=== PATIENT | female | born 1960 | race Caucasian/White ===

== ENCOUNTER 2019-11-06 18:37 | Emergency (ER) | payer OTHER ==
[2019-11-06] MEDS ORDERED: Acetaminophen 325 MG Tab PO ONE (19:14)
--- NOTE | 2019-11-06 19:37 | EDM.PDOC ---
ED HPI GENERAL MEDICAL PROBLEM - General Chief Complaint: Lower Extremity Injury/Pain Stated Complaint: LEFT LEG PAIN Time Seen by Provider: 11/06/19 18:56 Source of Information: Reports: Patient History Limitations: Reports: No Limitations - History of Present Illness INITIAL COMMENTS - FREE TEXT/NARRATIVE: 59-year-old female status post fall at home. A door was caught in the wind knocked her off of her 2-1/2 foot porch onto her left ankle. This took place yesterday. Today she has increasing pain and swelling. She went to see if she has a fracture or not. She has been ambulatory on the limb. No head trauma no back, chest abdomen pelvis trauma she only wants to be worked for the left lower extremity. Pain is 3/10 and worse with walking. Pain is sharp. Pain is located from the mid ovalles downward to the foot and ankle. No fever, chills, nausea, diarrhea, chest pain, shortness of breath, weakness numbness or confusion. left knee Pain Score (Numeric/FACES): 10 right knee Pain Score (Numeric/FACES): 10 left ankle/foot Pain Score (Numeric/FACES): 10 - Related Data Allergies Allergy/AdvReac Type Severity Reaction Status Date / Time codeine Allergy Agitation Verified 11/06/19 19:07 Home Meds: Home Meds Anti-Depressant 11/06/19 [History] Blood Pressure Medication 11/06/19 [History] Hydrocodone/Acetaminophen [Hydrocodon-Acetaminophen 5-325] 1 each PO Q6HR PRN # 6 tablet 11/06/19 [Rx] Past Medical History Cardiovascular History: Reports: Hypertension Musculoskeletal History: Reports: Fracture Psychiatric History: Reports: Depression - Infectious Disease History Infectious Disease History: Reports: Chicken Pox - Past Surgical History Female Surgical History: Reports: Hysterectomy, Tubal Ligation Musculoskeletal Surgical History: Reports: Knee Replacement Social & Family History - Family History Family Medical History: Noncontributory - Tobacco Use Smoking Status *Q: Never Smoker - Recreational Drug Use Recreational Drug Use: No Review of Systems - Review of Systems Review Of Systems: Comprehensive ROS is negative, except as noted in HPI. ED EXAM, GENERAL - Physical Exam Exam: See Below Free Text/Narrative:: General: No acute distress. Comfortable. Extremities: Painless range of motion right knee painless range of motion left knee. Negative pain on the hips with loading and abduction and outward rotation. No pain to palpation right lower extremity. Left lower extremity is tender with mid calf compression. There is tenderness about the ankle as well as the midfoot. Excellent pulses. No bruising or ecchymosis. Peripheral examination revealed no pedal edema. Peripheral pulses were 2+. Course - Vital Signs Text/Narrative:: No ecchymosis, excellent pulses not consistent with momentary knee dislocation. Knee ranges painlessly. Imaging completed. Last Recorded V/S: Last Vital Signs Temp 97.2 F 11/06/19 20:20 Pulse 73 11/06/19 20:20 Resp 18 11/06/19 20:20 BP 141/97 H 11/06/19 20:20 Pulse Ox 96 11/06/19 20:20 - Orders/Labs/Meds Orders: Active Orders 24 hr Category Date Time Status DME for Discharge [COMM] Stat Oth 11/06/19 20:00 Ordered Meds: Medications Discontinued Medications Generic Name Dose Route Start Last Admin Trade Name Freq PRN Reason Stop Dose Admin Acetaminophen 650 mg 11/06/19 19:14 11/06/19 19:31 Tylenol PO 11/06/19 19:15 650 mg NOW ONE Administration Departure - Departure Time of Disposition: 19:56 Disposition: Home, Self-Care 01 Condition: Good Clinical Impression: Foot fracture Qualifiers: Encounter type: initial encounter Fracture type: closed Laterality: left Qualified Code(s): S92.902A - Unspecified fracture of left foot, initial encounter for closed fracture - Discharge Information Prescriptions: Hydrocodone/Acetaminophen [Hydrocodon-Acetaminophen 5-325] 1 each PO Q6HR PRN # 6 tablet PRN Reason: Pain (Severe 7-10) Instructions: Metatarsal Fracture Referrals: PCP,None [Primary Care Provider] - Forms: ED Department Discharge Additional Instructions: Continue taking anti-inflammatory medications to control your pain. Regular usage will yield better results than occasional usage. Note that all anti- inflammatory medications like ibuprofen has some small risk of heart attack and stroke. For breakthrough pain. Use hydrocodone. Limit the use of this medication as much as possible. Follow-up immediately with orthopedics. Limit weightbearing on the left foot as much as possible. Wear your fracture shoe. Discharge Ortho clinic [facility] - [facility] [address], [address] [place] [address] The following information is given to patients seen in the emergency department who are being discharged to home. This information is to outline your options for follow-up care. We provide all patients seen in our emergency department with a follow-up referral. The need for follow-up, as well as the timing and circumstances, are variable depending upon the specifics of your emergency department visit. If you don't have a primary care physician on staff, we will provide you with a referral. We always advise you to contact your personal physician following an emergency department visit to inform them of the circumstance of the visit and for follow-up with them and/or the need for any referrals to a consulting specialist. The emergency department will also refer you to a specialist when appropriate. This referral assures that you have the opportunity for follow-up care with a specialist. All of these measure are taken in an effort to provide you with optimal care, which includes your follow-up. Under all circumstances we always encourage you to contact your private physician who remains a resource for coordinating your care. When calling for follow-up care, please make the office aware that this follow-up is from your recent emergency room visit. If for any reason you are refused follow-up, please contact the [facility] Emergency Department at and asked to speak to the emergency department charge nurse. Sepsis Event Note - Evaluation Sepsis Screening Result: No Definite Risk - Focused Exam Vital Signs: Vital Signs Temp Pulse Resp BP Pulse Ox 11/06/19 20:20 97.2 F 73 18 141/97 H 96 11/06/19 19:08 97.1 F 87 18 179/87 H 94 L Date Exam was Performed: 11/07/19 Time Exam was Performed: 02:03 - My Orders Last 24 Hours: My Active Orders 11/06/19 20:00 DME for Discharge [COMM] Stat - Assessment/Plan Last 24 Hours: My Active Orders 11/06/19 20:00 DME for Discharge [COMM] Stat
--- NOTE | 2019-11-06 19:48 | CR ---
INDICATION: Fall, tibia pain left lower leg and foot TECHNIQUE: Tibia-fibula radiograph 2 views left COMPARISON: None FINDINGS: Bone: No acute fractures or aggressive bone lesions are identified. The frontal view does not include the distal tibia and fibula. Joint: A total knee arthroplasty is partially visualized. No significant joint effusion is seen. Soft tissue: Unremarkable. No radiopaque foreign bodies are seen. IMPRESSION: 1. No acute osseous injuries or abnormalities are noted. Dictated by Ricardo Alarcon MD @ 11/06/2019 7:47:54 PM Dictated by: Ricardo Alarcon MD @ 11/06/2019 19:48:07 (Electronically Signed)
--- NOTE | 2019-11-06 19:50 | CR ---
INDICATION: Fall, pain left lower leg and foot TECHNIQUE: Foot radiograph 3 views left COMPARISON: None FINDINGS: Bone: There is a nondisplaced oblique fracture of the distal 5th metatarsal and a transverse, intra-articular fracture of the proximal 5th metatarsal noted. 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 No significant ankle effusion is seen. Soft tissue: Unremarkable. No radiopaque foreign bodies are seen. IMPRESSION: 1. There is a nondisplaced oblique fracture of the distal 5th metatarsal and a transverse, intra-articular fracture of the proximal 5th metatarsal noted. Dictated by Ricardo Alarcon MD @ 11/06/2019 7:50:11 PM Dictated by: Ricardo Alarcon MD @ 11/06/2019 19:50:19 (Electronically Signed)
--- NOTE | 2019-11-06 19:50 | CR ---
INDICATION: Patient fall, ankle pain left lower leg and foot TECHNIQUE: Ankle radiograph 3 views left COMPARISON: None FINDINGS: Bone: No acute fractures or aggressive bone lesions are identified. Small irregular calcific densities are seen near the lateral malleolus. Fracture of the 5th metatarsal as described on separate report. Joint: The ankle mortise joint and the visualized hindfoot joints are unremarkable in appearance. No significant ankle effusion is seen. Soft tissue: Moderate lateral soft tissue swelling is noted. No radiopaque foreign bodies are seen. IMPRESSION: 1. Small irregular calcific densities are seen near the lateral malleolus. Findings may be due to soft tissue calcifications or small avulsion fracture fragment. Dictated by Ricardo Alarcon MD @ 11/06/2019 7:49:07 PM Dictated by: Ricardo Alarcon MD @ 11/06/2019 19:49:10 (Electronically Signed)
== END 2019-11-06 20:21 | disposition home or self-care (01) ==
LOC: MW.ED 18:37
DX: S92.355A Nondisplaced fracture of fifth metatarsal bone, left foot, initial encounter for closed fracture (principal); I10 Essential (primary) hypertension; F32.9 Major depressive disorder, single episode, unspecified; Z88.5 Allergy status to narcotic agent; Z79.899 Other long term (current) drug therapy; W18.09XA Striking against other object with subsequent fall, initial encounter
CPT/HCPCS: 73590; 73610; 73630; 99283; A9270